=== PATIENT | male | born 1930 | race Caucasian/White ===

== ENCOUNTER 2016-11-08 18:04 | Emergency (ER) | payer MEDICARE ==
[~2016-11-08] VITALS: Ht 172.7 cm; Wt 91.8 kg
[~2016-11-08 18:04] MED LIST: ALPR-138 PO; ATOR10 PO; CARV3.125 PO; COUM5TAB PO; DIPH25 PO; ENOX100P SQ; FURO20 PO; POTA-243 PO; PROT40TA PO; SERT50 PO; TERA10CA3 PO; TRAM50TA PO; TREN400T PO; VITA200017 OR; WARF2.5 PO
[2016-11-08 18:07] VITALS: BP 176/78; PULSE 67; RESP 22; TEMP 97.8; O2SAT 96
[2016-11-08 18:10] VITALS: O2SAT 96
--- NOTE | 2016-11-08 18:22 | PD ---
Physical Exam Date Seen by Provider: Nov 08, 2016 Time Seen by Provider: 18:16 Narrative 86 y/o male with Hx of Bilateral Shoulder pain for years, but increased left shoulder pain radiating into his chest and neck today. Patient has Hx. of multiple Stents and Afib. Patient denies fever, Chills or Abdominal symptoms. Patient states pain is 10/10 and not improved with tylenol that he took 2 hours ago. V/S reviewed. Cardiac Protocols Ordered. Patient awaiting bed placement. Data Data Last Documented VS Vital Signs Date Time Temp Pulse Resp B/P Pulse Ox O2 Delivery O2 Flow Rate FiO2 11/08/16 18:10 96 11/08/16 18:07 97.8 67 22 176/78 Room Air Orders Electrocardiogram (11/08/16 18:14) B-Type Natriuretic Peptide (11/08/16 18:14) Ckmb (Isoenzyme) Profile (11/08/16 18:14) Complete Blood Count With Diff (11/08/16 18:14) Comprehensive Metabolic Panel (11/08/16 18:14) Magnesium (Mg) (11/08/16 18:14) Prothrombin Time / Inr (Pt) (11/08/16 18:14) Act Partial Throm Time (Ptt) (11/08/16 18:14) Troponin I (11/08/16 18:14) Chest, Single Ap (11/08/16 18:14) MDM Medical Record Reviewed: Yes Supervised Visit with YAS: Yes Condition: Stable John Bruno Nov 08, 2016 18:22
--- NOTE | 2016-11-08 19:01 | RADRPT ---
EXAM DATE/TIME: 11/08/2016 18:35 [facility] COMPARISON: CHEST SINGLE AP, November 21, 2014, 9:23. INDICATIONS : Patient complains of left sided chest pain that sometimes radiates into left shoulder. MEDICAL HISTORY : None. SURGICAL HISTORY : CABG. Cardiac ablation. ENCOUNTER: Initial ACUITY: 3 days PAIN SCORE: 9/10 LOCATION: Left chest FINDINGS: Stable appearance of the chest and compared to prior chest x-ray 11/21/14. Cardiomegaly. Evidence of prior median sternotomy, multiple hemoclips in the mediastinum dense mild central distinguish bronchi al markings are unchanged. The hemidiaphragms remain well delineated. No focal infiltrates seen. CONCLUSION: Cardiomegaly and evidence of prior cardiac surgery. No acute findings. Dat Louis MD on November 08, 2016 at 18:59 Board Certified Radiologist. This report was verified electronically.
[2016-11-08 19:15] LABS: AUTOMATED NEUTROPHIL # 4.1 TH/MM3 (1.8-7.7); BASOPHIL % 0.8 % (0.0-2.0); EOSINOPHIL % 0.6 % (0.0-4.0); HEMATOCRIT 37.3 % (39.0-51.0); LYMPH % 21.6 % (9.0-44.0); LYMPHOCYTE # 1.3 TH/MM3 (1.0-4.8); MEAN CELL VOLUME 75.5 FL (80.0-100.0); MEAN CORPUSCULAR HEMOGLOBIN 23.7 PG (27.0-34.0); MEAN CORPUSCULAR HGB CONC 31.4 % (32.0-36.0); MONO % 6.9 % (0.0-8.0); NEUT % 70.1 % (16.0-70.0); PLATELET COUNT 158 TH/MM3 (150-450); RED BLOOD COUNT 4.94 MIL/MM3 (4.50-5.90); WHITE BLOOD COUNT 5.8 TH/MM3 (4.0-11.0)
[2016-11-08 19:18] LABS: HEMO FLAGS AUTO DIFF
[2016-11-08 19:29] VITALS: BP 193/94; PULSE 66; RESP 23; O2SAT 95
[2016-11-08 19:38] LABS: APTT (PATIENT) 52.7 SEC (24.3-30.1); INTERNATIONAL NORMALIZED RATIO 3.5 RATIO; PROTHROMBIN TIME - PATIENT 40.5 SEC (9.8-11.6)
[2016-11-08 19:44] LABS: ANION GAP 9 MEQ/L (5-15); AST (GOT) 20 U/L (15-37); BICARBONATE 30.3 MEQ/L (21.0-32.0); BLOOD UREA NITROGEN 20 MG/DL (7-18); CHLORIDE 104 MEQ/L (98-107); GLOMERULAR FILTRATION RATE 57 ML/MIN (>89); MAGNESIUM 2.3 MG/DL (1.5-2.5); POTASSIUM 3.6 MEQ/L (3.5-5.1); SODIUM (NA) 143 MEQ/L (136-145)
[2016-11-08 19:49] LABS: ALKALINE PHOSPHATASE 111 U/L (45-117); ALT (GPT) 23 U/L (12-78); CREATINE KINASE 165 U/L (39-308); TOTAL BILIRUBIN ADULT 0.9 MG/DL (0.2-1.0)
[2016-11-08 19:51] LABS: OVALOCYTES 1+ (NORMAL); SCAN/DIFF AUTO DIFF CONFIRMED
[2016-11-08] MEDS ORDERED: ORPHENADRINE INJ 60 MG/2 ML AMP IM ONE (20:00)
[2016-11-08 20:01] LABS: CKMB 3.1 NG/ML (0.5-3.6)
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
[2016-11-08] MEDS ORDERED: ONDANSETRON HCL 4 MG/2 ML VIAL IM ONE ×2 (20:15→22:15)
[2016-11-08] MEDS ORDERED: MORPHINE SULFATE 4 MG/ML INJ IM ONE (20:15)
[2016-11-08] MEDS ORDERED: POTA1TAB4 PO (20:19)
[2016-11-08] MEDS ORDERED: WARF-23 PO (20:19)
[2016-11-08] MEDS ORDERED: FURO1TAB61 PO (20:19)
[2016-11-08] MEDS ORDERED: LISI10TA3 PO (20:19)
[2016-11-08] MEDS ORDERED: FURO1TAB60 PO (20:19)
[2016-11-08] MEDS ORDERED: PENT400T PO (20:19)
[2016-11-08] MEDS ORDERED: BENA25TA3 PO (20:19)
[2016-11-08] MEDS ORDERED: ATOR20TA15 PO (20:19)
[2016-11-08] MEDS ORDERED: TERA5CAP3 PO (20:19)
[2016-11-08] MEDS ORDERED: COUM2.5T PO (20:19)
[2016-11-08] MEDS ORDERED: ALPR.5 PO (20:19)
[2016-11-08] MEDS ORDERED: VITA2000 PO (20:19)
[2016-11-08] MEDS ORDERED: SERT-132 PO (20:19)
[2016-11-08] MEDS ORDERED: MAPA500T PO (20:22)
[2016-11-08] MEDS ORDERED: ALBU0.08 NEB (20:22)
[2016-11-08] MEDS ORDERED: IPRA0.02 NEB (20:23)
[2016-11-08] MEDS ORDERED: VENTAER INH (20:24)
--- NOTE | 2016-11-08 20:39 | RADRPT ---
EXAM DATE/TIME: 11/08/2016 20:26 [facility] COMPARISON: No previous studies available for comparison. INDICATIONS : Chronic left shoulder pain. No known trauma. MEDICAL HISTORY : Cardiovascular disease. SURGICAL HISTORY : CABG. ENCOUNTER: Initial ACUITY: 3 days PAIN SCORE: 7/10 LOCATION: Left scapular FINDINGS: Sharp performed. On the frontal views, the humeral head appears low with respect to the glenoid. On the transscapular Y. view however, a portion of the humeral head does have alignment with the glenoi d. Moderate degenerative changes in the a.c. joint. The visualized left upper ribs are intact. CONCLUSION: The transscapular Y. view demonstrates preserved alignment of the humeral head and glenoid, but the f rontal views suggest that there may be some inferior subluxation of the humeral head. Dat Louis MD on November 08, 2016 at 20:36 Board Certified Radiologist. This report was verified electronically.
[2016-11-08 21:01] VITALS: BP 140/67; PULSE 59; RESP 16; O2SAT 94
[2016-11-08] MEDS ORDERED: TRAM50TA PO (22:05)
[2016-11-08] MEDS ORDERED: HYDR-3533 PO (22:06)
[2016-11-08] MEDS ORDERED: HYDROmorphone HCL PF 2 MG/ML VIAL IM ONE (22:15)
[2016-11-08] MEDS ORDERED: LIDO5DIS35 TOPICAL (22:16)
[2016-11-08] MEDS ORDERED: LIDOCAINE HCL 5% PATCH T-DERMAL ONE (22:30)
--- NOTE | 2016-11-09 14:42 | EKG ---
Date Performed: 11/08/2016 Time Performed: 18:26:30 PTAGE: 86 years EKG: ATRIAL FIBRILLATION WITH SLOW VENTRICULAR RESPONSE NONSPECIFIC ST & T-WAVE ABNORMALITY PROL ONGED QT INTERVAL Rate has slowed since prior tracing and ventricular ectopy is new Clinical correlat ion is recommended ABNORMAL ECG PREVIOUS TRACING : 11/18/2014 11.42 DOCTOR: Wolf Torres Interpretating Date/Time 11/09/2016 14:40:59
== END 2016-11-09 05:30 | disposition home or self-care (01) ==
LOC: NEPE 18:04
DX: M25.512 Pain in left shoulder (principal); I48.91 Unspecified atrial fibrillation; M19.90 Unspecified osteoarthritis, unspecified site; E78.00 Pure hypercholesterolemia, unspecified; I10 Essential (primary) hypertension; Z95.1 Presence of aortocoronary bypass graft
CPT/HCPCS: 71010; 73030; 80053; 82550; 82552; 83735; 83880; 84484; 85025; 85610; 85730; 93005; 96372; 99284; J1170; J2270; J2360; J2405

== ENCOUNTER 2017-07-13 23:22 | Observation (INO) | payer MEDICARE ==
[~2017-07-13] VITALS: Ht 174 cm; Wt 94.3 kg
[~2017-07-13 23:22] MED LIST changes: +ALBU0.08 NEB; -ALPR-138 PO; +ALPR.5 PO; -ATOR10 PO; +ATOR20TA15 PO; +BENA25TA3 PO; -CARV3.125 PO; +COUM2.5T PO; -COUM5TAB PO; -DIPH25 PO; -ENOX100P SQ; +FURO1TAB60 PO; +FURO1TAB61 PO; -FURO20 PO; +HYDR-3533 PO; +IPRA0.02 NEB; +LIDO5DIS35 TOPICAL; +LISI10TA3 PO; +MAPA500T PO; +PENT400T PO; -POTA-243 PO; +POTA1TAB4 PO; -PROT40TA PO; +SERT-132 PO; -SERT50 PO; -TERA10CA3 PO; +TERA5CAP3 PO; -TRAM50TA PO; -TREN400T PO; +VENTAER INH; +VITA2000 PO; -VITA200017 OR; +WARF-23 PO; -WARF2.5 PO
[2017-07-13 23:34] VITALS: BP 168/78; PULSE 89; RESP 18; TEMP 100.1; O2SAT 90
[2017-07-14] VITALS (11 sets, daily range): BP systolic 102–164; BP diastolic 60–85; PULSE 66–87; RESP 14–20; TEMP 96–99.9; O2SAT 91–98
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
[2017-07-14] MEDS ORDERED: SODIUM CHLORIDE 0.9% FLUSH 10 ML FLUSH IVF PRN (02:30)
[2017-07-14 02:40] LABS: AUTOMATED NEUTROPHIL # 4.3 TH/MM3 (1.8-7.7); BASOPHIL # 0.1 TH/MM3 (0-0.2); BASOPHIL % 1.2 % (0.0-2.0); EOSINOPHIL # 0.1 TH/MM3 (0-0.4); EOSINOPHIL % 0.9 % (0.0-4.0); HEMATOCRIT 37.9 % (39.0-51.0); HEMOGLOBIN 11.9 GM/DL (13.0-17.0); LYMPHOCYTE # 0.7 TH/MM3 (1.0-4.8); MEAN CELL VOLUME 77.4 FL (80.0-100.0); MEAN CORPUSCULAR HEMOGLOBIN 24.2 PG (27.0-34.0); MEAN CORPUSCULAR HGB CONC 31.3 % (32.0-36.0); MEAN PLATELET VOLUME 8.6 FL (7.0-11.0); MONO % 7.7 % (0.0-8.0); MONOCYTE # 0.4 TH/MM3 (0-0.9); NEUT % 78.2 % (16.0-70.0); PLATELET COUNT 188 TH/MM3 (150-450); RED BLOOD COUNT 4.89 MIL/MM3 (4.50-5.90); RED CELL DISTRIBUTION WIDTH 17.5 % (11.6-17.2); WHITE BLOOD COUNT 5.6 TH/MM3 (4.0-11.0)
[2017-07-14] MEDS: RESP: ALBUTEROL 2.5 MG/IPRATROPIUM 0.5 MG NEB (SCH) INH ×2 (02:44→02:45)
[2017-07-14 02:48] LABS: CHLORIDE 103 MEQ/L (98-107); SODIUM (NA) 141 MEQ/L (136-145)
[2017-07-14 02:49] LABS: BILIRUBIN, URINE NEG (NEG); BLOOD, URINE LARGE (NEG); GLUCOSE,URINE NEG (NEG); KETONE, URINE NEG (NEG); NITRITE,URINE NEG (NEG); URINE LEUKOCYTE ESTERASE NEG (NEG)
[2017-07-14 02:52] LABS: ALBUMIN 3.6 GM/DL (3.4-5.0); BICARBONATE 30.2 MEQ/L (21.0-32.0); BLOOD UREA NITROGEN 22 MG/DL (7-18); CALCIUM 8.6 MG/DL (8.5-10.1); GLUCOSE,RANDOM 156 MG/DL (74-106)
--- NOTE | 2017-07-14 02:53 | RADRPT ---
EXAM DATE/TIME: 07/14/2017 02:22 [facility] COMPARISON: CHEST SINGLE AP, November 08, 2016, 18:35. INDICATIONS : Short of breath. MEDICAL HISTORY : Cardiovascular disease. SURGICAL HISTORY : CABG. ENCOUNTER: Initial ACUITY: 1 day PAIN SCORE: 6/10 LOCATION: Bilateral chest FINDINGS: There is slight cardiomegaly and questionable mild perivascular pulmonary edema. Focal consolidation is not seen. There is evidence for prior median sternotomy. CONCLUSION: Slight cardiomegaly and questionable mild pulmonary venous congestion. Linda Fuller MD on July 14, 2017 at 2:51 Board Certified Radiologist. This report was verified electronically.
[2017-07-14 02:55] LABS: ALT (GPT) 18 U/L (12-78); AST (GOT) 20 U/L (15-37)
[2017-07-14 02:56] LABS: GLOMERULAR FILTRATION RATE 52 ML/MIN (>89)
[2017-07-14 02:57] LABS: TOTAL BILIRUBIN ADULT 0.9 MG/DL (0.2-1.0); TOTAL PROTEIN 7.5 GM/DL (6.4-8.2)
[2017-07-14 02:58] LABS: ALKALINE PHOSPHATASE 87 U/L (45-117)
[2017-07-14 02:58] LABS: URINE COLOR YELLOW (YELLW/STRAW)
[2017-07-14 02:59] LABS: MUCUS URINE OCC /lpf (OCC); SQUAMOUS EPITHELIAL CELL URINE 0-5 /hpf (0-5)
[2017-07-14 03:00] LABS: TROPONIN I 0.04 NG/ML (0.02-0.05)
[2017-07-14 03:01] LABS: BACTERIA, URINE OCC /hpf
[2017-07-14] MEDS ORDERED: HYDR-3516 PO (03:17)
[2017-07-14 03:36] LABS: OVALOCYTES 1+ (NORMAL)
[2017-07-14] MEDS ORDERED: LEVOFLOXACIN 500 MG PREMIX INJ 100 ML IV ONE (04:15)
--- NOTE | 2017-07-14 06:53 | HHI.HP ---
HPI Service [facility] Hospitalists Primary Care Physician Landy Gallagher MD (Vipin) Admission Diagnosis pneumonitis Chief Complaint: Cough with phlegm production, increased fatigue, low-grade fever Travel History International Travel<30 Days: No Contact w/Intl Traveler <30 Da: No Traveled to Known Affected Are: No History of Present Illness Pleasant 87-year-old male with history of hypertension and congestive heart failure as well as coronary artery disease who presents with 2 day history of cough with yellow to guardado phlegm production. He notes that he has had some low- grade fevers at home as well. He also notes that his was diagnosed with "walking pneumonia" last week and he believes he picked up some of her infection. He denies any michael hemoptysis however ER physician reports that he saw scant flecks of blood in the patient's phlegm in the ER. No recent foreign travel. Patient has not smoked since he was age 12 but does use supplemental oxygen at night per his it teacher's recommendations. He denies any chest pain, dysuria, hematuria, recurrent headaches. He has some chronic underlying dyspnea associated with his congestive heart failure he reports. Review of Systems Constitutional: COMPLAINS OF: Fatigue, Fever, Chills Endocrine: DENIES: Heat/cold intolerance, Polydipsia, Polyuria, Polyphagia Eyes: DENIES: Blurred vision, Diplopia, Eye inflammation, Eye pain, Vision loss , Photosensitivity, Double Vision Ears, nose, mouth, throat: COMPLAINS OF: Running Nose, Sinus Pain, DENIES: Tinnitus, Hearing loss, Vertigo, Nasal discharge, Oral lesions, Throat pain, Hoarseness, Ear Pain, Epistaxis, Toothache, Odynophagia Respiratory: COMPLAINS OF: Cough, Wheezing, Sputum production, Shortness of breath Cardiovascular: COMPLAINS OF: Dyspnea on Exertion, Lower Extremity Edema, DENIES: Chest pain, Palpitations, Syncope, PND, Orthopnea, Claudication Gastrointestinal: DENIES: Abdominal pain, Black stools, Bloody stools, BRB per rectum, Constipation, Diarrhea, GERD, Nausea, Reflux, Vomiting, Difficulty Swallowing, Anorexia, See HPI Musculoskeletal: COMPLAINS OF: Joint pain, Back pain Hematologic/lymphatic: COMPLAINS OF: Bruising Immunologic/allergic: DENIES: Eczema, Urticaria Neurologic: COMPLAINS OF: Abnormal gait Psychiatric: COMPLAINS OF: Anxiety Past Family Social History Past Medical History CAD HTN Hyperlipidemia A. fib PACs CHF CKD, stage 3 Anxiety Depression PVD GERD Past Surgical History CABG x 5 in 1997 CABG x 1 in 2001 third time redo sternotomy with transmyocardial revascularization via laser ablation technique in the circumflex/obtuse marginal distribution (12/2006) with Dr. Hernandez Lumbar spine semi-laminectomy in 2005 Cholecystectomy Bilateral total knee arthroplasty Reported Medications Hydrocodone-Acetaminophen 5-325 mg Tab 1 Tab PO Q6H PRN Ventolin Hfa 18 GM Inh (Albuterol Sulfate) 90 Mcg/Act Aer 1 Puff INH Q6HR PRN Ipratropium Neb (Ipratropium [place]) 0.5 Mg/2.5 Ml Amp 0.5 Mg NEB QID PRN Albuterol Neb (Albuterol Sulfate) 2.5 Mg/3 Ml Neb 2.5 Mg NEB QID NEB PRN Mapap (Acetaminophen) 500 Mg Tab 1,000 Mg PO HS Lisinopril 40 mg PO DAILY Warfarin 5 Mg Tab 5 Mg PO SUMOTUWEFRSA @ 1700 Coumadin (Warfarin) 2.5 Mg Tab 2.5 Mg PO THURSDAY Terazosin (Terazosin HCl) 5 Mg Cap 5 Mg PO HS Sertraline (Sertraline HCl) 50 Mg Tab 50 Mg PO HS K-Tab (Potassium Chloride) 10 mEq by mouth twice a day Lasix (Furosemide) 40 Mg Tab 40 Mg PO DAILY @ 1400 Lasix (Furosemide) 80 Mg Tab 80 Mg PO DAILY IN THE MORNING Vitamin D3 (Cholecalciferol) 2,000 Unit Cap 2,000 Units PO DAILY Atorvastatin (Atorvastatin Calcium) 20 Mg Tab 20 Mg PO HS Xanax (Alprazolam) 0.25 Mg Tab 0.25 Mg PO HS Supplemental oxygen 2 L per nasal cannula when sleeping Colace 100 mg every other day as needed for constipation Allergies: Coded Allergies: adhesive (Unverified Allergy, Severe, TAPE TEARS SKIN, 07/14/17) cefadroxil (Unverified Allergy, Severe, RASH, 07/14/17) cefazolin (Unverified Allergy, Severe, HALLUCINATIONS, 07/14/17) cefepime (Unverified Allergy, Severe, Rash, 07/14/17) ceftaroline fosamil (Unverified Allergy, Severe, Rash, 07/14/17) cephalexin (Unverified Allergy, Severe, RASH AND SWELLING, 07/14/17) ketoprofen (Unverified Allergy, Severe, RASH AND SWELLING, 07/14/17) metoprolol (Unverified Allergy, Severe, RASH, 07/14/17) penicillin G (Unverified Allergy, Severe, SWELLING AND RASH, 07/14/17) aspirin (Unverified Allergy, Mild, UNKNOWN REACTION, 07/14/17) oxycodone (Unverified Allergy, Mild, UNKNOWN REACTION, 07/14/17) vancomycin (Unverified Allergy, Unknown, 07/14/17) Uncoded Allergies: AMFLEC (Allergy, Severe, 10/28/14) Family History Noncontributory Social History No tobacco since age 12 and only smoked small amounts that time Rare alcohol and when he does drink, it's no more than 1-2 drinks per week he says Moved here in 1987 from [place] 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 Cooperative, alert and oriented. SKIN: Few purpuric lesions on forearms. Venous stasis dermatitis bilateral lower extremities. Cool and dry. HEAD: Atraumatic. Normocephalic. No temporal or scalp tenderness. EYES: Pupils equal round and reactive. Extraocular motions intact. No scleral icterus. No injection or drainage. ENT: Nose without bleeding, purulent drainage or septal hematoma. Airway patent. NECK: Trachea midline. No JVD or lymphadenopathy. Supple, nontender, no meningeal signs. CARDIOVASCULAR: Regular rate and rhythm without murmurs, gallops, or rubs. RESPIRATORY: Coarse rhonchi bilateral mid to lower lung arthur, no fine crackles. Fair air movement. Occasional cough noted. GASTROINTESTINAL: Abdomen soft, non-tender, nondistended. No hepato-splenomegaly , or palpable masses. No guarding. MUSCULOSKELETAL: Extremities without clubbing, cyanosis. 1+ edema bilateral feet and distal lower extremities. No joint tenderness, effusion, or edema noted. No calf tenderness. NEUROLOGICAL: Awake and alert. Cranial nerves II through XII intact. Motor and sensory grossly within normal limits. Five out of 5 muscle strength in all muscle groups. Normal speech. Observe patient ambulating in the room with a walker. Laboratory Laboratory Tests Test 07/14/17 02:05 07/14/17 02:25 07/14/17 03:30 White Blood Count 5.6 Red Blood Count 4.89 Hemoglobin 11.9 Hematocrit 37.9 Mean Corpuscular Volume 77.4 Mean Corpuscular Hemoglobin 24.2 Mean Corpuscular Hemoglobin Concent 31.3 Red Cell Distribution Width 17.5 Platelet Count 188 Mean Platelet Volume 8.6 Neutrophils (%) (Auto) 78.2 Lymphocytes (%) (Auto) 12.0 Monocytes (%) (Auto) 7.7 Eosinophils (%) (Auto) 0.9 Basophils (%) (Auto) 1.2 Neutrophils # (Auto) 4.3 Lymphocytes # (Auto) 0.7 Monocytes # (Auto) 0.4 Eosinophils # (Auto) 0.1 Basophils # (Auto) 0.1 CBC Comment AUTO DIFF Differential Comment AUTO DIFF CONFIRMED Platelet Estimate NORMAL Platelet Morphology Comment NORMAL Ovalocytes 1+ Blood Urea Nitrogen 22 Creatinine 1.30 Random Glucose 156 Total Protein 7.5 Albumin 3.6 Calcium Level 8.6 Alkaline Phosphatase 87 Aspartate Amino Transf (AST/SGOT) 20 Alanine Aminotransferase (ALT/SGPT) 18 Total Bilirubin 0.9 Sodium Level 141 Potassium Level 3.5 Chloride Level 103 Carbon Dioxide Level 30.2 Anion Gap 8 Estimat Glomerular Filtration Rate 52 Troponin I 0.04 B-Type Natriuretic Peptide 169 Urine Color YELLOW Urine Turbidity SLIGHT Urine pH 6.0 Urine Specific [place] 1.020 Urine Protein 100 Urine Glucose (UA) NEG Urine Ketones NEG Urine Occult Blood LARGE Urine Nitrite NEG Urine Bilirubin NEG Urine Leukocyte Esterase NEG Urine RBC 50-99 Urine Squamous Epithelial Cells 0-5 Urine Bacteria OCC Urine Mucus OCC Microscopic Urinalysis Comment CULT NOT INDICATED Blood Gas Puncture Site LT RADIAL Blood Gas Patient Temperature 98.6 Blood Gas HCO3 30 Blood Gas Base Excess 5.6 Blood Gas Oxygen Saturation 90 Arterial Blood pH 7.44 Arterial Blood Partial Pressure CO2 44 Arterial Blood Partial Pressure O2 64 Arterial Blood Oxygen Content 15.1 Arterial Blood Carboxyhemoglobin 1.5 Arterial Blood Methemoglobin 1.3 Blood Gas Hemoglobin 12.0 Oxygen Delivery Device ROOM AIR Blood Gas Inspired Oxygen 21 Date/Time Source Procedure Growth Status 07/14/17 04:45 Blood Peripheral Aerobic Blood Culture Pending Received 07/14/17 04:45 Blood Peripheral Anaerobic Blood Culture Pending Received 07/14/17 03:20 Nasal Aspirate Influenza Types A,B Antigen (GUS) - Final NEGATIVE FOR FLU A AND B ANTIGEN.... Complete Result Diagram: 07/14/1720407/14/17204 Imaging Last 72 hours Impressions Chest X-Ray 07/14/17220 Signed Impressions: Service Date/Time: Friday, July 14, 2017 02:22 - CONCLUSION: Slight cardiomegaly and questionable mild pulmonary venous congestion. Linda Fuller MD Caprini VTE Risk Assessment Caprini VTE Risk Assessment: Mod/High Risk (score >= 2) Caprini Risk Assessment Model Point Value = 1 Point Value = 2 Point Value = 3 Point Value = 5 Age 41-60 Minor surgery BMI > 25 kg/m2 Swollen legs Varicose veins or History of unexplained or recurrent spontaneous Oral contraceptives or hormone replacement Sepsis (< 1 month) Serious lung disease, including pneumonia (< 1 month) Abnormal pulmonary function Acute myocardial infarction Congestive heart failure (< 1 month) History of inflammatory bowel disease Medical patient at bed rest Age 61-74 Arthroscopic surgery Major open surgery (> 45 min) Laparoscopic surgery (> 45 min) Malignancy Confined to bed (> 72 hours) Immobilizing plaster cast Central venous access Age >= 75 History of VTE Family history of VTE Factor V Leiden Prothrombin [id number] Lupus anticoagulant Anticardiolipin antibodies Elevated serum homocysteine Heparin-induced thrombocytopenia Other congenital or acquired thrombophilia Stroke (< 1 month) Elective arthroplasty Hip, pelvis, or leg fracture Acute spinal cord injury (< 1 month) Prophylaxis Regimen Total Risk Factor Score Risk Level Prophylaxis Regimen 0-1 Low Early ambulation 2 Moderate Order ONE of the following: *Sequential Compression Device (SCD) *Heparin 5000 units SQ BID 3-4 Higher Order ONE of the following medications: *Heparin 5000 units SQ TID *Enoxaparin/Lovenox 40 mg SQ daily (WT < 150 kg, CrCl > 30 mL/min) *Enoxaparin/Lovenox 30 mg SQ daily (WT < 150 kg, CrCl > 10-29 mL/min) *Enoxaparin/Lovenox 30 mg SQ BID (WT < 150 kg, CrCl > 30 mL/min) AND/OR *Sequential Compression Device (SCD) 5 or more Highest Order ONE of the following medications: *Heparin 5000 units SQ TID (Preferred with Epidurals) *Enoxaparin/Lovenox 40 mg SQ daily (WT < 150 kg, CrCl > 30 mL/min) *Enoxaparin/Lovenox 30 mg SQ daily (WT < 150 kg, CrCl > 10-29 mL/min) *Enoxaparin/Lovenox 30 mg SQ BID (WT < 150 kg, CrCl > 30 mL/min) AND *Sequential Compression Device (SCD) Assessment and Plan Problem List: (1) Bronchitis ICD Codes: J40 - Bronchitis, not specified as acute or chronic Status: Acute Plan: Possible mild pneumonitis/early pneumonia given his symptomatology. He is mildly hypoxic which apparently is not new for him given that he uses supplemental oxygen at night at home. We'll provide IV antibiotics, steroid, nebulizer and supplemental oxygen. Hopefully he'll recover quickly and could be discharged home tomorrow (2) CHF (congestive heart failure) ICD Codes: I50.9 - CHF (congestive heart failure) Status: Chronic Plan: No overt failure on exam. His current symptoms are more consistent with a bronchitis/pneumonitis. BNP only 169. Continue home medication. (3) HTN (hypertension) ICD Codes: I10 - HTN (hypertension) Status: Chronic Plan: Continue home medications (4) Chronic atrial fibrillation ICD Codes: I48.2 - Chronic atrial fibrillation Status: Chronic Plan: Continue warfarin. We'll likely need to adjust the dose given that he' ll be on Levaquin. Follow INR. (5) CAD (coronary artery disease) ICD Codes: I25.10 - CAD (coronary artery disease) Status: Chronic Plan: Reports that he's had no more chest pain or anginal symptoms since he had laser ablation done back about 10 years ago. Continue current medication. (6) Hyperlipemia ICD Codes: E78.5 - Hyperlipemia Status: Chronic Plan: Continue medication. Code Status full Discussed Condition With Patient and ER provider. Problem Qualifiers (1) CHF (congestive heart failure): (2) HTN (hypertension): Qualified Codes: I10 - Essential (primary) hypertension Rogers Johnson MD PhD Jul 14, 2017 06:53
[2017-07-14] MEDS ORDERED: ALPRAZolam 0.25 MG TAB PO PRN (07:45)
[2017-07-14] MEDS ORDERED: RESP: ALBUTEROL 1.25 MG/3 ML NEB (PRN) NEB (07:45)
[2017-07-14] MEDS ORDERED: ACETAMINOPHEN/HYDROcodone 325 MG/5 MG TAB PO PRN (07:45)
[2017-07-14 08:16] LABS: INTERNATIONAL NORMALIZED RATIO 2.5 RATIO; PROTHROMBIN TIME - PATIENT 25.2 SEC (9.8-11.6)
[2017-07-14] MEDS: methylPREDNISolone SOD SUCC 40 MG/1 ML VIAL IV PUSH SCH ×2 (10:02→21:48)
[2017-07-14] MEDS: CHOLECALCIFEROL (VIT D3) 1000 UNIT TAB PO SCH (10:05)
[2017-07-14] MEDS: LISINOPRIL 20 MG TAB PO SCH (10:06)
[2017-07-14] MEDS: guaiFENesin E.R. 600 MG TAB PO SCH ×2 (10:07→21:49)
[2017-07-14] MEDS: FUROSEMIDE 80 MG TAB PO SCH (10:07)
[2017-07-14] MEDS: POTASSIUM CHLORIDE 10 MEQ CONTROLLED RELEASE TAB PO SCH ×2 (10:07→15:51)
[2017-07-14] MEDS: RESP: ALBUTEROL 2.5 MG/IPRATROPIUM 0.5 MG NEB (SCH) NEB ×3 (10:38→21:11)
[2017-07-14] MEDS ORDERED: POTASSIUM CHLORIDE 10 MEQ CONTROLLED RELEASE TAB PO SCH (16:00)
[2017-07-14] MEDS ORDERED: WARFARIN SOD 5 MG TAB PO SCH (16:00)
[2017-07-14] MEDS ORDERED: FUROSEMIDE 40 MG TAB PO SCH (16:00)
[2017-07-14] MEDS ORDERED: ATORVASTATIN 20 MG TAB PO SCH (21:00)
[2017-07-14] MEDS ORDERED: TERAZOSIN HCL 5 MG CAP PO SCH (21:00)
[2017-07-14] MEDS ORDERED: SERTRALINE HCL 50 MG TAB PO SCH (21:00)
[2017-07-15] VITALS: BP 140/88; PULSE 59; RESP 20; TEMP 96.1; O2SAT 97
[2017-07-15] MEDS: RESP: ALBUTEROL 2.5 MG/IPRATROPIUM 0.5 MG NEB (SCH) NEB ×2 (03:14→09:33)
[2017-07-15 04:00] VITALS: BP 129/80; PULSE 64; RESP 20; TEMP 96; O2SAT 96
[2017-07-15] MEDS ORDERED: LEVOFLOXACIN 250 MG PREMIX INJ 50 ML IV SCH (06:00)
[2017-07-15 06:25] LABS: BICARBONATE 28.7 MEQ/L (21.0-32.0); CALCIUM 8.7 MG/DL (8.5-10.1)
[2017-07-15 06:29] LABS: CREATININE 1.2 MG/DL (0.60-1.30)
[2017-07-15 06:32] LABS: INTERNATIONAL NORMALIZED RATIO 3.3 RATIO; PROTHROMBIN TIME - PATIENT 33.7 SEC (9.8-11.6)
--- NOTE | 2017-07-15 07:15 | HHI.PR ---
Subjective Remarks Feeling better. Still with cough but decreased frequency and decreased phlegm production. Patient has been ambulating in the room without supplemental oxygen but typically feels better with supplemental oxygen. ER he has supplemental oxygen at home. Objective Vitals Vital Signs Date Time Temp Pulse Resp B/P (MAP) Pulse Ox O2 Delivery O2 Flow Rate FiO2 07/15/17 04:00 96.0 64 20 129/80 (96) 96 07/15/17 00:00 96.1 59 20 140/88 (105) 97 07/14/17 21:10 98 Nasal Cannula 2.00 07/14/17 20:00 96.1 66 20 140/82 (101) 96 07/14/17 16:00 96.0 76 14 118/60 (79) 94 07/14/17 12:00 98.7 84 16 102/63 (76) 95 07/14/17 08:18 97 Nasal Cannula 2.00 07/14/17 08:00 98.7 79 14 122/68 (86) 96 GENERAL: Sleeping, arouses to voice, alert and oriented. Pleasant. Occasional cough with deep inspiration but improved from previous exam. SKIN: Warm and dry. HEAD: Normocephalic. EYES: No scleral icterus. No injection or drainage. NECK: Supple, trachea midline. No JVD or lymphadenopathy. CARDIOVASCULAR: Distant heart sounds, irregular, no significant murmur appreciated. RESPIRATORY: Right lung is relatively clear however he had some wheezing with bronchovesicular sounds in the left mid lung. This improved as well with coughing. No fine crackles. GASTROINTESTINAL: Abdomen soft, non-tender, nondistended. Bowel sounds noted. MUSCULOSKELETAL: No cyanosis, 1+ edema in feet and distal lower extremities. BACK: No CVA tenderness. Result Diagram: 07/14/17 0205 07/15/17 0540 Imaging Last 72 hours Impressions Chest X-Ray 07/14/17220 Signed Impressions: Service Date/Time: Friday, July 14, 2017 02:22 - CONCLUSION: Slight cardiomegaly and questionable mild pulmonary venous congestion. Linda Fuller MD Urinary Catheter: No Vascular Central Line Catheter: No A/P Problem List: (1) Bronchitis ICD Codes: J40 - Bronchitis, not specified as acute or chronic Status: Acute Plan: Possible mild pneumonitis/early pneumonia given his symptomatology. He is mildly hypoxic which apparently is not new for him given that he uses supplemental oxygen at night at home. Convert to oral antibiotics and oral steroids. Continue supplemental oxygen as at home. Discharge home with home health later today. (2) CHF (congestive heart failure) ICD Codes: I50.9 - CHF (congestive heart failure) Status: Chronic Plan: No overt failure on exam. His current symptoms are more consistent with a bronchitis/pneumonitis. BNP only 169. Continue home medication. (3) HTN (hypertension) ICD Codes: I10 - HTN (hypertension) Status: Chronic Plan: Continue home medications (4) Chronic atrial fibrillation ICD Codes: I48.2 - Chronic atrial fibrillation Status: Chronic Plan: Continue warfarin. INR a bit elevated today. We'll hold today's Coumadin dose and decrease Coumadin to 2.5 mg 4 days a week and 5 mg 3 days a week. We'll repeat INR outpatient. Will likely need lower dose for duration of his antibiotic course. I have explained this to the patient. (5) CAD (coronary artery disease) ICD Codes: I25.10 - CAD (coronary artery disease) Status: Chronic Plan: Reports that he's had no more chest pain or anginal symptoms since he had laser ablation done back about 10 years ago. Continue current medication. (6) Hyperlipemia ICD Codes: E78.5 - Hyperlipemia Status: Chronic Plan: Continue medication. Discharge Planning Discharge home with home health later today. Problem Qualifiers (1) CHF (congestive heart failure): (2) HTN (hypertension): Qualified Codes: I10 - Essential (primary) hypertension Rogers Johnson MD PhD Jul 15, 2017 07:15
[2017-07-15] MEDS ORDERED: COUM2.5T PO (07:21)
[2017-07-15] MEDS ORDERED: PRED20 PO (07:21)
[2017-07-15] MEDS ORDERED: LEVA500T33 PO (07:21)
[2017-07-15] MEDS ORDERED: COUM5TAB PO (07:21)
--- NOTE | 2017-07-15 07:26 | HHI.FF ---
Face to Face Verification Diagnosis: (1) Dyspnea (2) Atrial fibrillation (3) Bronchitis Physical Therapy Order: Evaluate and Treat, Improve ambulation, Strength and gait training Home Health Nursing Order: Signs/symptoms of disease process CHF education Oxygen administration education I have seen patient Darvin Christianson on 07/15/17. My clinical findings support the need for the requested home health care services because: Ltd mobility - disease progression Patient has SOB Deconditioned w/ increased weakness Limited ability to care for self High risk of falls I certify that my clinical findings support that this patient is homebound because: Unsteady gait/balance Poor cardiac reserve Rogers Johnson MD PhD Jul 15, 2017 07:26
[2017-07-15] MEDS ORDERED: OXYGENDME NAS.CANULA (07:28)
[2017-07-15 08:00] VITALS: BP 119/57; PULSE 68; RESP 20; TEMP 97.6
[2017-07-15] MEDS: LISINOPRIL 20 MG TAB PO SCH (09:00)
[2017-07-15] MEDS: guaiFENesin E.R. 600 MG TAB PO SCH (09:00)
[2017-07-15] MEDS: CHOLECALCIFEROL (VIT D3) 1000 UNIT TAB PO SCH (09:00)
[2017-07-15] MEDS: POTASSIUM CHLORIDE 10 MEQ CONTROLLED RELEASE TAB PO SCH (09:00)
[2017-07-15] MEDS: FUROSEMIDE 80 MG TAB PO SCH (09:00)
[2017-07-15 09:36] VITALS: O2SAT 95
[2017-07-15] MEDS ORDERED: WARFARIN SOD 2.5 MG TAB PO SCH (16:00)
[2017-07-16] MEDS ORDERED: LEVOFLOXACIN 250 MG TAB PO SCH (11:00)
[2017-07-16] MEDS ORDERED: WARFARIN SOD 2.5 MG TAB PO SCH (16:00)
[2017-07-17] MEDS ORDERED: WARFARIN SOD 5 MG TAB PO SCH (16:00)
== END 2017-07-15 10:40 | disposition home health service (06) ==
LOC: PHED 23:22 → PHEDA 07-14 04:10 → PH3A 07-14 05:12
PROVIDERS: ADMIT Family Medicine; ATTEND Family Medicine
DX: J40 Bronchitis, not specified as acute or chronic (principal); I48.2 Chronic atrial fibrillation; I25.10 Atherosclerotic heart disease of native coronary artery without angina pectoris; I13.0 Hypertensive heart and chronic kidney disease with heart failure and stage 1 through stage 4 chronic kidney disease, or unspecified chronic kidney disease; I50.9 Heart failure, unspecified; N18.3 Chronic kidney disease, stage 3 (moderate); E78.5 Hyperlipidemia, unspecified; I73.9 Peripheral vascular disease, unspecified; K21.9 Gastro-esophageal reflux disease without esophagitis; Z79.01 Long term (current) use of anticoagulants; Z95.1 Presence of aortocoronary bypass graft; Z96.653 Presence of artificial knee joint, bilateral; Z99.81 Dependence on supplemental oxygen
CPT/HCPCS: 36600; 71020; 80048; 80053; 81001; 82805; 83880; 84484; 85025; 85610; 87040; 87149; 87186; 87205; 87804; 94640; 94664; 94667; 94668; 96365; 96375; 96376; 97110; 97116; 97163; 99285; G0378; G8987; G8988; J1956; J2920

== ENCOUNTER 2017-07-23 19:18 | Emergency (ER) | payer MEDICARE ==
[~2017-07-23 19:18] MED LIST changes: -BENA25TA3 PO; +COUM5TAB PO; +HYDR-3516 PO; -HYDR-3533 PO; +LEVA500T33 PO; -LIDO5DIS35 TOPICAL; +OXYGENDME NAS.CANULA; -PENT400T PO; +PRED20 PO; -WARF-23 PO
[2017-07-23 19:33] VITALS: BP 126/63; PULSE 76; RESP 20; TEMP 98; O2SAT 95
[2017-07-23] MEDS ORDERED: WARF-18 PO (19:58)
[2017-07-23] MEDS ORDERED: COUM5TAB PO (19:58)
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
[2017-07-23] MEDS ORDERED: HUMIBIDDM PO (19:59)
[2017-07-23] MEDS ORDERED: predniSONE 20 MG TAB PO ONE (20:00)
[2017-07-23] MEDS ORDERED: ACETAMINOPHEN/HYDROcodone 325 MG/5 MG TAB PO ONE (20:00)
[2017-07-23] MEDS ORDERED: HYDR-3516 PO (20:03)
[2017-07-23] MEDS ORDERED: PRED20 PO (20:03)
[2017-07-23 20:58] VITALS: BP 118/60
== END 2017-07-23 21:01 | disposition home or self-care (01) ==
LOC: PHED 19:18
DX: M19.072 Primary osteoarthritis, left ankle and foot (principal); M19.071 Primary osteoarthritis, right ankle and foot; I48.91 Unspecified atrial fibrillation; F41.9 Anxiety disorder, unspecified; I11.0 Hypertensive heart disease with heart failure; I50.9 Heart failure, unspecified; J44.9 Chronic obstructive pulmonary disease, unspecified; I25.10 Atherosclerotic heart disease of native coronary artery without angina pectoris; E78.00 Pure hypercholesterolemia, unspecified
CPT/HCPCS: 99284; J7512